=== PATIENT | male | born 1970 | race Caucasian/White ===

== ENCOUNTER 2021-07-17 13:07 | Emergency (ER) | payer OTHER ==
[~2021-07-17] VITALS: Ht 185.4 cm; Wt 95.2 kg
--- NOTE | 2021-07-17 13:27 | ED Abdominal Pain ---
General Chief Complaint: Abdominal/GI Problems Stated Complaint: LLQ PAIN,N,V,DIFFICULTY URINATING Source of Information: Patient Exam Limitations: No Limitations History of Present Illness Date Seen by Provider: Jul 17, 2021 Time Seen by Provider: 13:13 Initial Comments 50-year-old male with no significant past medical history coming in due to left lower quadrant abdominal pain that is severe, sharp, constant, and started over an hour ago. He has associated nausea and nonbloody nonbilious vomiting. No fever, chest pain, shortness of breath, weakness, numbness, or any other concerns. Had a normal bowel movement around the same time with no blood in it. Has never had pain like this before. Was told in a colonoscopy but he does have diverticulosis but has never had diverticulitis. Denies any history of abdominal surgeries. Nothing seems to make the pain better or worse. He was on his way from [place] to [facility] for work and had to stop here in the ER be cause of the pain. He is otherwise denying any other acute complaints. Allergies and Home Medications Allergies Coded Allergies: No Known Drug Allergies (Unverified , 07/17/21) Patient Home Medication List Home Medication List Reviewed: Yes Ketorolac Tromethamine (Ketorolac Tromethamine) 10 Mg Tablet, 10 MG PO Q8H PRN for PAIN-MODERATE (5-7) Prescribed by: TEA GERARDO on 07/17/211456 Ondansetron (Ondansetron Odt) 4 Mg Tab.rapdis, 4 MG PO Q6H PRN for NAUSEA/VOMITING-1ST LINE Prescribed by: TEA GERARDO on 07/17/211456 Oxycodone HCl (Oxycodone HCl) 5 Mg Tablet, 5 MG PO Q6H PRN for PAIN-SEVERE (8- 10) Prescribed by: TEA GERARDO on 07/17/21 145 Tamsulosin HCl (Flomax) 0.4 Mg Cap, 0.4 MG PO DAILY Prescribed by: TEA GERARDO on 07/17/211456 Review of Systems Review of Systems Constitutional: No chills, No fever EENTM: No Blurred Vision Respiratory: Denies Cough Cardiovascular: Denies Chest Pain Gastrointestinal: Abdominal Pain; Denies Diarrhea; Nausea, Vomiting Musculoskeletal: No back pain Skin: no symptoms reported Psychiatric/Neurological: No Symptoms Reported Endocrine: No Symptoms Reported Hematologic/Lymphatic: No Symptoms Reported All Other Systems Reviewed Negative Unless Noted: Yes Past Zgieicw-Clqamx-Zonclw Hx Patient Social History Tobacco Use?: No Substance use?: No Alcohol Use?: No Past Medical History Surgeries: Yes Orthopedic Physical Exam Vital Signs Vital Signs - First Documented 07/17/21 13:19 Temp 35.9 Pulse 73 Resp 18 B/P (MAP) 167/97 (120) Pulse Ox 100 Capillary Refill : Height/Weight/BMI Height: '" Weight: lbs. oz. kg; BMI Method: General Appearance: WD/WN, mild distress HEENT: PERRL/EOMI, normal ENT inspection, pharynx normal Neck: non-tender, full range of motion, supple, normal inspection Respiratory: chest non-tender, lungs clear, normal breath sounds, no respiratory distress, no accessory muscle use Cardiovascular: regular rate, rhythm, no edema, no murmur Gastrointestinal: normal bowel sounds, soft; No distended, No guarding, No rebound; tenderness Extremities: normal range of motion, non-tender, normal inspection, no pedal edema, no calf tenderness, normal capillary refill Back: normal inspection, no CVA tenderness, no vertebral tenderness Neurologic/Psychiatric: no motor/sensory deficits, alert, normal mood/affect Skin: normal color, warm/dry Lymphatic: no adenopathy Progress/Results/Core Measures Results/Orders Lab Results Laboratory Tests Test 07/17/21 13:25 07/17/21 13:35 Range/Units White Blood Count 12.3 H 4.3-11.0 10^3/uL Red Blood Count 5.30 4.30-5.52 10^6/uL Hemoglobin 16.5 13.3-17.7 g/dL Hematocrit 48 40-54 % Mean Corpuscular Volume 91 80-99 fL Mean Corpuscular Hemoglobin 31 25-34 pg Mean Corpuscular Hemoglobin Concent 34 32-36 g/dL Red Cell Distribution Width 12.1 10.0-14.5 % Platelet Count 292 130-400 10^3/uL Mean Platelet Volume 10.0 9.0-12.2 fL Immature Granulocyte % (Auto) 0 % Neutrophils (%) (Auto) 86 H 42-75 % Lymphocytes (%) (Auto) 9 L 12-44 % Monocytes (%) (Auto) 4 0-12 % Eosinophils (%) (Auto) 0 0-10 % Basophils (%) (Auto) 0 0-10 % Neutrophils # (Auto) 10.6 H 1.8-7.8 10^3/uL Lymphocytes # (Auto) 1.1 1.0-4.0 10^3/uL Monocytes # (Auto) 0.5 0.0-1.0 10^3/uL Eosinophils # (Auto) 0.1 0.0-0.3 10^3/uL Basophils # (Auto) 0.0 0.0-0.1 10^3/uL Immature Granulocyte # (Auto) 0.0 0.0-0.1 10^3/uL Neutrophils % (Manual) 88 % Lymphocytes % (Manual) 7 % Monocytes % (Manual) 3 % Eosinophils % (Manual) 0 % Basophils % (Manual) 0 % Band Neutrophils 2 % Blood Morphology Comment NORMAL Sodium Level 140 135-145 MMOL/L Potassium Level 3.8 3.6-5.0 MMOL/L Chloride Level 107 98-107 MMOL/L Carbon Dioxide Level 20 L 21-32 MMOL/L Anion Gap 13 5-14 MMOL/L Blood Urea Nitrogen 17 7-18 MG/DL Creatinine 1.04 0.60-1.30 MG/DL Estimat Glomerular Filtration Rate 76 BUN/Creatinine Ratio 16 Glucose Level 134 H 70-105 MG/DL Calcium Level 8.5 8.5-10.1 MG/DL Corrected Calcium 8.1 L 8.5-10.1 MG/DL Total Bilirubin 0.8 0.1-1.0 MG/DL Aspartate Amino Transf (AST/SGOT) 26 5-34 U/L Alanine Aminotransferase (ALT/SGPT) 44 0-55 U/L Alkaline Phosphatase 80 40-136 U/L Total Protein 7.0 6.4-8.2 GM/DL Albumin 4.5 3.2-4.5 GM/DL Lipase 19 8-78 U/L Urine Color YELLOW Urine Clarity CLEAR Urine pH 6.0 5-9 Urine Specific [place] >=1.030 1.016-1.022 Urine Protein TRACE H NEGATIVE Urine Glucose (UA) NEGATIVE NEGATIVE Urine Ketones 3+ H NEGATIVE Urine Nitrite NEGATIVE NEGATIVE Urine Bilirubin 1+ H NEGATIVE Urine Urobilinogen 0.2 < = 1.0 MG/DL Urine Leukocyte Esterase NEGATIVE NEGATIVE Urine RBC (Auto) 3+ H NEGATIVE Urine RBC 25-50 H /HPF Urine WBC NONE /HPF Urine Crystals NONE /LPF Urine Bacteria NEGATIVE /HPF Urine Casts NONE /LPF Urine Mucus SMALL H /LPF Urine Culture Indicated NO My Orders Orders - TEA GERARDO MD Comprehensive Metabolic Panel (07/17/21 13:27) Lipase (07/17/21 13:27) Ua Culture If Indicated (07/17/21 13:27) Cbc With Automated Diff (07/17/21 13:27) Ct Abdomen/Pelvis W (07/17/21 13:27) Ondansetron Injection (Zofran Injectio (07/17/21 13:30) Morphine Injection (Morphine Injection (07/17/21 13:30) Manual Differential (07/17/21 13:25) Ketorolac Injection (Toradol Injection) (07/17/21 14:00) Morphine Injection (Morphine Injection (07/17/21 14:00) Iohexol Injection (Omnipaque 350 Mg/Ml 1 (07/17/21 14:15) Received Contrast (Hold Metformin- Contr (07/17/21 14:15) Sodium Chloride Flush (Catheter Flush Sy (07/17/21 14:15) Ns (Ivpb) (Sodium Chloride 0.9% Ivpb Bag (07/17/21 14:15) Medications Given in ED Current Medications Medications Dose Ordered Sig/Michael Route Start Time Stop Time Status Last Admin Dose Admin Iohexol 100 ml ONCE ONCE IV 07/17/21 14:15 07/17/21 14:16 DC 07/17/21 14:17 100 ML Ketorolac Tromethamine 15 mg ONCE ONCE IVP 07/17/21 14:00 07/17/21 14:01 DC 07/17/21 14:07 15 MG Morphine Sulfate 4 mg ONCE ONCE IVP 07/17/21 13:30 07/17/21 13:31 DC 07/17/21 13:36 4 MG Morphine Sulfate 8 mg ONCE ONCE IVP 07/17/21 14:00 07/17/21 14:01 DC 07/17/21 14:07 8 MG Ondansetron HCl 4 mg ONCE ONCE IVP 07/17/21 13:30 07/17/21 13:31 DC 07/17/21 13:35 4 MG Sodium Chloride 10 ml NEEDED PRN IV 07/17/21 14:15 07/17/21 14:18 10 ML Sodium Chloride 100 ml ONCE ONCE IV 07/17/21 14:15 07/17/21 14:16 DC 07/17/21 14:17 80 ML Vital Signs/I&O 07/17/21 13:19 Temp 35.9 Pulse 73 Resp 18 B/P (MAP) 167/97 (120) Pulse Ox 100 Progress Progress Note : Progress Note 50-year-old male with above history coming in due to left lower quadrant abdominal pain. ABCs were intact and vitals were stable on presentation. He is in severe pain and in mild distress. An IV was placed and he was given morphine for pain and Zofran for his nausea. Basic labs obtained and significant for a mildly elevated CBC and urinalysis with blood in it but no signs of infection. Creatinine is normal. CT abdomen and pelvis with contrast ordered to assess for diverticulitis versus a typical appendicitis versus ureterolithiasis versus some other etiology. This was concerning for ureterolithiasis with mild hydronephrosis. He did require a repeat dose of IV morphine as well as Toradol for pain control. After this his pain was well controlled and he finally was comfortable. I discussed a trial of passage at home versus admission for pain management. He says he is feeling significantly better and would like to go home to try to pass it better. He was then discharged home in stable condition with strict return precautions. Diagnostic Imaging Diagonstic Imaging: CT Plain Films/CT/US/NM/MRI: abdomen, pelvis Comments Draft Date of Exam:07/17/21 CT ABDOMEN/PELVIS W PROCEDURE: CT abdomen and pelvis with contrast. TECHNIQUE: Multiple contiguous axial images were obtained through the abdomen and pelvis after administration of intravenous contrast. Auto Exposure Controls were utilized during the CT exam to meet ALARA standards for radiation dose reduction. All CT scans use one or more of the following dose optimizing techniques: automated exposure control, MA and/or KvP adjustment based on patient size and exam type or iterative reconstruction. INDICATION: Sudden in onset, left lower quadrant pain in the abdomen, starting one hour ago. Nausea and vomiting. CORRELATION STUDY: None. FINDINGS: LOWER THORAX: Clear. Small hiatal hernia. LIVER: Mild fatty infiltration. No focal lesion. GALLBLADDER: Present and unremarkable. No bile duct dilatation. SPLEEN: Unremarkable. PANCREAS: Unremarkable. ADRENAL GLANDS: Unremarkable. KIDNEYS: Normal renal parenchymal enhancement. Prominent appearance about the bilateral renal pelves and slightly caliectasis is present. There is slight asymmetrically prominent left ureter present. There is a faint, 2 to 3 mm stone in the distal left ureter just proximal to the UVJ. This results in delayed contrast filling of the left ureter. ABDOMINAL AORTA: Unremarkable, nonaneurysmal. GASTROINTESTINAL TRACT: Stomach is relatively collapsed. There is no small bowel obstruction. Majority of the colon is relatively collapsed. This results in areas of particularly colonic wall thickening. No definitive inflammation or obstruction. Normal appendix is present in the right lower quadrant. No findings to suggest acute diverticulitis. URINARY BLADDER: Decompressed. REPRODUCTIVE: Presumed vasectomy clips. Prostate gland appearing unremarkable. OSSEOUS STRUCTURES: No acute abnormality. OTHER: None. IMPRESSION: 1. Faint, 2 to 3 mm calcification in the distal left ureter results in mild left-sided ureteric obstruction. 2. Mild hepatic steatosis. 3. No findings to suggest significant diverticular disease or acute diverticulitis. Dictated on workstation # [id number] Dict: 07/17/21 1431 Trans: 07/17/21 1443 [id number] Interpreted by: EDWARDO SINCLAIR DO Electronically signed by: Departure Impression Primary Impression: Ureterolithiasis Disposition: 01 HOME, SELF-CARE Condition: Improved Departure-Patient Inst. Decision time for Depature: 14:54 Referrals: NO,LOCAL PHYSICIAN (PCP/Family) Primary Care Physician Patient Instructions: Kidney Stone, Adult ED Add. Discharge Instructions: You were seen in the emergency department for severe abdominal pain. This ended up being a kidney stone that is on its way down to your bladder and has almost passed. We will send some pain medication, nausea medication, and Flomax to your pharmacy. I would recommend taking the Toradol first, and if you have continued pain then taking the oxycodone. You can also take Tylenol on top of this. The Toradol essentially is a strong ibuprofen, so do not mix this with ibuprofen. When you run out of the Toradol I would recommend taking 600 mg of ibuprofen in its place if needed. The majority of people of this passes within the next couple days, but can take up to 2 weeks. I do recommend following up with a urologist back in your hometown. If you develop fever, vomiting that will not stop, or severe pain not controlled by her medications then please come back to the emergency department. Scripts Tamsulosin HCl (Flomax) 0.4 Mg Cap 0.4 MG PO DAILY for 14 Days, #14 CAP Prov: TEA GERARDO MD 07/17/21 Ondansetron (Ondansetron Odt) 4 Mg Tab.rapdis 4 MG PO Q6H PRN for NAUSEA/VOMITING-1ST LINE for 5 Days, #20 TAB Prov: TEA GERARDO MD 07/17/21 Ketorolac Tromethamine (Ketorolac Tromethamine) 10 Mg Tablet 10 MG PO Q8H PRN for PAIN-MODERATE (5-7) for 3 Days, #9 TAB Prov: TEA GERARDO MD 07/17/21 Oxycodone HCl (Oxycodone HCl) 5 Mg Tablet 5 MG PO Q6H PRN for PAIN-SEVERE (8-10) for 3 Days, #12 TAB Prov: TEA GERARDO MD 07/17/21 TEA GERARDO MD Jul 17, 2021 13:27
[2021-07-17] MEDS ORDERED: ONDANSETRON 4 MG/2 ML (SDV) Z0FRAN IVP ONE (13:30)
[2021-07-17] MEDS ORDERED: morphine INJ 10 MG/ML 1ML (SYR OR VIAL) IVP ONE ×2 (13:30→14:00)
[2021-07-17 13:39] LABS: BASOPHILS % (AUTO) 0 % (0-10); EOSINOPHILS # (AUTO) 0.1 10^3/uL (0.0-0.3); EOSINOPHILS % (AUTO) 0 % (0-10); HEMATOCRIT 48 % (40-54); HEMOGLOBIN 16.5 g/dL (13.3-17.7); LYMPHOCYTES # (AUTO) 1.1 10^3/uL (1.0-4.0); LYMPHOCYTES % (AUTO) 9 % (12-44); MEAN CORPUSCULAR HEMOGLOBIN 31 pg (25-34); MEAN CORPUSCULAR HGB CONC 34 g/dL (32-36); MEAN CORPUSCULAR VOLUME 91 fL (80-99); MONOCYTES # (AUTO) 0.5 10^3/uL (0.0-1.0); MONOCYTES % (AUTO) 4 % (0-12); NEUTROPHILS # (AUTO) 10.6 10^3/uL (1.8-7.8); NEUTROPHILS % (AUTO) 86 % (42-75); PLATELET COUNT 292 10^3/uL (130-400); WHITE BLOOD COUNT 12.3 10^3/uL (4.3-11.0)
[2021-07-17 13:45] LABS: CLARITY,URINE CLEAR; COLOR,URINE YELLOW; GLUCOSE, URINE (UA) NEGATIVE (NEGATIVE); KETONES,URINE 3+ (NEGATIVE); LEUKOCYTE ESTERASE ,URINE NEGATIVE (NEGATIVE); NITRITE,URINE NEGATIVE (NEGATIVE); PROTEIN,URINE TRACE (NEGATIVE)
[2021-07-17 13:56] LABS: ALBUMIN 4.5 GM/DL (3.2-4.5); BILIRUBIN,TOTAL 0.8 MG/DL (0.1-1.0); CALCIUM 8.5 MG/DL (8.5-10.1); CREATININE SERUM 1.04 MG/DL (0.60-1.30); POTASSIUM 3.8 MMOL/L (3.6-5.0)
[2021-07-17 13:57] LABS: BACTERIA,URINE NEGATIVE /HPF; BILIRUBIN,URINE 1+ (NEGATIVE); RBC,URINE 25-50 /HPF
[2021-07-17] MEDS ORDERED: KETOROLAC 30 MG/ML VIAL IVP ONE (14:00)
[2021-07-17] MEDS ORDERED: IOHEXOL 350 MG/ML 100 ML (OMNIPAQUE 350) VIAL IV ONE (14:15)
[2021-07-17] MEDS ORDERED: HOLD METFORMIN - RECEIVED CONTRAST 20 ML VIAL IV SCH (14:15)
[2021-07-17] MEDS ORDERED: CATHETER FLUSH 10 ML SYR IV PRN (14:15)
[2021-07-17] MEDS ORDERED: NS 100 ML (IVPB) BAG IV ONE (14:15)
[2021-07-17 14:16] LABS: BAND NEUTROPHILS 2 %; BASOPHILS % (MANUAL) 0 %; EOSINOPHILS % (MANUAL) 0 %; LYMPHOCYTES % (MANUAL) 7 %; MONOCYTES % (MANUAL) 3 %; NEUTROPHILS % (MANUAL) 88 %; RBC MORPH NORMAL
--- NOTE | 2021-07-17 14:43 | Diagnostic Imaging Report ---
PROCEDURE: CT abdomen and pelvis with contrast. TECHNIQUE: Multiple contiguous axial images were obtained through the abdomen and pelvis after administration of intravenous contrast. Auto Exposure Controls were utilized during the CT exam to meet ALARA standards for radiation dose reduction. All CT scans use one or more of the following dose optimizing techniques: automated exposure control, MA and/or KvP adjustment based on patient size and exam type or iterative reconstruction. INDICATION: Sudden in onset, left lower quadrant pain in the abdomen, starting one hour ago. Nausea and vomiting. CORRELATION STUDY: None. FINDINGS: LOWER THORAX: Clear. Small hiatal hernia. LIVER: Mild fatty infiltration. No focal lesion. GALLBLADDER: Present and unremarkable. No bile duct dilatation. SPLEEN: Unremarkable. PANCREAS: Unremarkable. ADRENAL GLANDS: Unremarkable. KIDNEYS: Normal renal parenchymal enhancement. Prominent appearance about the bilateral renal pelves and slightly caliectasis is present. There is slight asymmetrically prominent left ureter present. There is a faint, 2 to 3 mm stone in the distal left ureter just proximal to the UVJ. This results in delayed contrast filling of the left ureter. ABDOMINAL AORTA: Unremarkable, nonaneurysmal. GASTROINTESTINAL TRACT: Stomach is relatively collapsed. There is no small bowel obstruction. Majority of the colon is relatively collapsed. This results in areas of particularly colonic wall thickening. No definitive inflammation or obstruction. Normal appendix is present in the right lower quadrant. No findings to suggest acute diverticulitis. URINARY BLADDER: Decompressed. REPRODUCTIVE: Presumed vasectomy clips. Prostate gland appearing unremarkable. OSSEOUS STRUCTURES: No acute abnormality. OTHER: None. IMPRESSION: 1. Faint, 2 to 3 mm calcification in the distal left ureter results in mild left-sided ureteric obstruction. 2. Mild hepatic steatosis. 3. No findings to suggest significant diverticular disease or acute diverticulitis. Dictated by: Dictated on workstation # [id number]
[2021-07-17] MEDS ORDERED: KETO10TA PO (14:57)
[2021-07-17] MEDS ORDERED: TMSL.4C PO (14:57)
[2021-07-17] MEDS ORDERED: OXYC5TAB PO (14:57)
[2021-07-17] MEDS ORDERED: ONDA4TAB11 PO (14:57)
[2021-07-17 15:11] VITALS: BP 115/83
== END 2021-07-17 15:10 | disposition home or self-care (01) ==
LOC: EDUNIT# 13:07 → ER 13:12
DX: N20.1 Calculus of ureter (principal)
CPT/HCPCS: 36415; 74177; 80053; 81000; 83690; 85007; 85027